=== PATIENT | female | born 1965 | race Caucasian/White ===

== ENCOUNTER 2024-03-12 06:31 | Day surgery (SDC) | payer OTHER, SELFPAY ==
[2024-03-10 13:40] VITALS: BMI 28.9
--- NOTE | 2024-03-11 08:57 | HO.ANESPROP2 ---
Documented by User: Elisabet Pringle NP 03/11/24 08:57 HPI - Anesthesia Eval Consult details Narrative: 58yo F for Colonoscopy PMF Past Medical History Medical History Hypothyroid Anxiety Depression Elevated cholesterol Urinary, incontinence, stress female HTN (hypertension) Surgical History Surgical History History of gynecologic surgery History of endometrial ablation H/O colonoscopy Social History Social History Patient Tobacco Use Status: Never used Tobacco Use of substances other than those prescribed or required for medical reasons: No Are you DNR?: No Advance Directives: No Advance Directives Information Provided: Yes Meds Allergies Allergy/AdvReac Type Severity Reaction Status Date / Time sleeping pills Allergy Unknown Unknown Uncoded 03/12/24 06:50 Home Medications ?Medication ?Instructions ?Recorded ?Confirmed ?Last Taken ?Type clonazepam 0.5 mg tablet 0.5 mg PO DAILY 03/10/24 03/10/24 Unknown History levothyroxine 125 mcg tablet 125 mcg PO DAILY 03/10/24 03/10/24 Unknown History Exam Height,Weight and Vital Signs: Height 5 ft 8 in Weight 86.183 kg Assessment and Plan Assessment Anesthesia Assessment: Chart Reviewed Documented by User: Risa Velazquez MD 03/12/24 08:23 PMFSH Past Medical History Medical History Hypothyroid Anxiety Depression Elevated cholesterol Urinary, incontinence, stress female HTN (hypertension) Family History Family history of problems with anesthesia: No Surgical History Surgical History History of gynecologic surgery History of endometrial ablation H/O colonoscopy History of Problems with Anesthesia: No Social History Social History Patient Tobacco Use Status: Never used Tobacco Use of substances other than those prescribed or required for medical reasons: No Are you DNR?: No Advance Directives: No Advance Directives Information Provided: Yes Meds Allergies Allergy/AdvReac Type Severity Reaction Status Date / Time sleeping pills Allergy Unknown Unknown Uncoded 03/12/24 06:50 Home Medications ?Medication ?Instructions ?Recorded ?Confirmed ?Last Taken ?Type clonazepam 0.5 mg tablet 0.5 mg PO DAILY 03/10/24 03/10/24 Unknown History levothyroxine 125 mcg tablet 125 mcg PO DAILY 03/10/24 03/10/24 Unknown History Exam Airway Mallampati Class: II TM Dist: >3cm Neck ROM: Full Heart: rrr Lungs: cta Assessment and Plan Assessment Anesthesia Assessment: Anesthesia Plan Discussed Final Anesthetic Review Family History of Problems with Anesthesia: No History of Problems with Anesthesia: No NPO: Yes ASA Class: II Final Preanesthetic Review: No Changes in Pt Med Stat, Meds/Allgs Chart Reviewed, Consent Obtained/Reviewed and Anes Risks/Benef Reviewed Patient Risk: Low Procedure Risk: Low Anesthetic Plan Anesthetic Plan: MAC: Disposition: Standard PACU
[2024-03-12 06:53] VITALS: BP 165/90; PULSE 94; RESP 18; TEMP 36.1; O2SAT 98
[2024-03-12] MEDS: Lactated Ringers 1,000 ML 100 ML IVCONT (07:05)
--- NOTE | 2024-03-12 07:33 | MHC.SHP ---
Pre-Procedural Eval Section A - 24 Hr Update-Section A only Date of Service: 03/12/24 Section B - Complete if H&P > 30 days Chief Complaint: screening Details of Present Illness: see H&P no changes Relevant Family History (Specify if Yes): No Relevant Social History: None Present Medications: see Short Stay Collaborative assessment Medical History: No relevant PMH History of Previous Operations: Relevant previous surgery/procedure and date(s) Allergies: Allergies Allergy/AdvReac Type Severity Reaction Status Date / Time sleeping pills Allergy Unknown Unknown Uncoded 03/12/24 06:50 Review of Systems Sugical H&P ROS: Negative: Constitution, Cardiovascular, Respiratory, Neurological, Psychiatric, Hem-Onc, Allergic/Immunologic, Gastrointestinal, Genitourinary, Musculoskeletal, Integumentary, Endocrine and Eyes/Ears/Nose/Throat Exam Surgical H&P Exam: Normal: HEENT, Normal: Heart, Normal: Lungs, Normal: Extremities, Normal: Abdomen, Normal: Skin and Normal: Neurological Plan Diagnosis/Plan: Unchanged I have reviewed the history and physical and performed a pertinent physical examination on my patient. No changes have occurred unless specified. Time Spent With Patient Time: Total time managing care of this patient today ____ minutes.
[2024-03-12 08:15] VITALS: BP 105/56; PULSE 76; RESP 15; TEMP 36.6; O2SAT 98
[2024-03-12 08:30] VITALS: BP 114/73; PULSE 63; RESP 16; O2SAT 98
[2024-03-12 08:45] VITALS: BP 132/72; PULSE 57; RESP 16; TEMP 36.6; O2SAT 97
--- NOTE | 2024-03-12 09:44 | OP_ITS ---
DATE OF SERVICE: 03/12/2024 SURGEON: Matty Patel MD INDICATIONS: Colon cancer screening. PREOPERATIVE DIAGNOSIS: POSTOPERATIVE DIAGNOSIS: PROCEDURE PERFORMED: Colonoscopy to the terminal ileum. ESTIMATED BLOOD LOSS: COMPLICATIONS: ANESTHESIA: Medications, monitored anesthesia care. ASSISTANTS: SPECIMENS: DESCRIPTION OF PROCEDURE: The history and physical performed. The risks and benefits of the procedure were explained to the patient. Informed consent was obtained. The patient was placed in a left lateral decubitus position. A digital rectal exam was performed and was found to be normal. The Olympus pediatric video colonoscope was introduced in the rectum and advanced to the cecum. The cecum was identified by transillumination, palpation, and identification of ileocecal valve. Examination was performed. The scope was removed. She tolerated the procedure well and was returned to recovery in stable condition. FINDINGS: The terminal ileum was examined and appeared normal. The visualized colonic mucosa was normal. The quality of the prep was excellent. No polyps were identified. Retroflexed examination showed some small internal hemorrhoids. IMPRESSION: Normal colonoscopy. RECOMMENDATION: 1. Follow up as needed. 2. Repeat colonoscopy is recommended in 10 years for average-risk individuals. MD SIMEON Horan/LARON / [id number]
== END 2024-03-12 09:15 | disposition home or self-care (01) ==
PROVIDERS: PCP Internal Medicine; Visit Provider Internal Medicine Gastroenterology
PROC: 0DJD8ZZ Inspection of Lower Intestinal Tract, Via Natural or Artificial Opening Endoscopic (ICD-10-PCS; CPT 45378; principal; 2024-03-12 07:30)
DX: Z12.11 Encounter for screening for malignant neoplasm of colon (principal); K64.8 Other hemorrhoids; I10 Essential (primary) hypertension; R14.3 Flatulence; N39.3 Stress incontinence (female) (male); E03.8 Other specified hypothyroidism; E78.5 Hyperlipidemia, unspecified; F41.8 Other specified anxiety disorders; Z79.899 Other long term (current) drug therapy; Z98.890 Other specified postprocedural states
CPT/HCPCS: 45378; J2704

== ENCOUNTER 2024-03-22 17:31 | Emergency (ER) | payer OTHER, SELFPAY ==
--- NOTE | ~2024-03-22 | CT_ITS ---
EXAMINATION: CT HEAD WITHOUT CONTRAST CLINICAL INFORMATION: Dizziness. COMPARISON: None available. TECHNIQUE: Contiguous axial imaging was performed from the skull base to vertex without intravenous administration of contrast. Sagittal and coronal reformatted images also obtained. This CT examination was performed using dose optimization techniques as appropriate, variously including the following: *Automated exposure control *Adjustment of mA and/or kV according to patient size (this includes techniques or standardized protocols for targeted exams where dose is matched to indication/reason for exam; i.e. extremities or head) *Use of iterative reconstruction technique DLP: 589 mGy-cm FINDINGS: The lateral, third and fourth ventricles are normally outlined. The cortical sulci and basal cisterns are normally outlined as well. There is no acute territorial defect, hemorrhage or midline shift. The extra-axial spaces are unremarkable. Calvarium/scalp: Intact. Maxillofacial sinuses and mastoids: Clear as visualized. CT/CT head/brain wo IV con IMPRESSION: No acute intracranial pathology.
[2024-03-22 17:43] VITALS: BP 174/87; PULSE 81; RESP 24; TEMP 36.6; O2SAT 99; BMI 28.2
--- NOTE | 2024-03-22 17:53 | ECG_ITS ---
Test Reason : SYNCOPE Blood Pressure : / mmHG Vent. Rate : 064 BPM Atrial Rate : 064 BPM P-R Int : 136 ms QRS Dur : 088 ms QT Int : 424 ms P-R-T Axes : 025 051 075 degrees QTc Int : 437 ms Normal sinus rhythm Minimal voltage criteria for LVH, may be normal variant ( Sokolow-Llanos ) Nonspecific T wave abnormality Abnormal ECG No previous ECGs available Referred By: Vasquez Whyte Electronically Signed By:HOLLIS CHAVEZ MD
--- NOTE | 2024-03-22 17:56 | ED.GENADULT ---
HPI - General Adult General Chief complaint: Dizziness Stated complaint: HBP 247/120 Time Seen by Provider: 03/22/24 21:16 Source: patient Mode of arrival: ambulatory Limitations: no limitations History of Present Illness HPI narrative: Patient is a 58-year-old female who presents emergency department for evaluation of a room spinning sensation with associated nausea and vomiting. She states that she has experienced symptoms like this at least 4 or 5 times in the past. Believe that this was due to vertigo. Symptoms typically resolve after 24 hours of primarily bed rest. However her symptoms persisted into the 2nd day today which was concerning for her. She reports that she was having some chest discomfort when she arrived, when asked to localize this she states the lower rib line/upper abdomen exacerbated during episodes of vomiting. She denies any vision changes, headache, neck pain, shortness of breath, abdominal pain, numbness or tingling of her extremities. Related Data Home Medications ?Medication ?Instructions ?Recorded ?Confirmed clonazepam 0.5 mg tablet 0.5 mg PO DAILY 03/10/24 03/10/24 levothyroxine 125 mcg tablet 125 mcg PO DAILY 03/10/24 03/10/24 Previous Rx's ?Medication ?Instructions ?Recorded meclizine 25 mg tablet 25 mg PO BID PRN dizziness #20 tabs 03/23/24 ondansetron 4 mg disintegrating 4 mg PO Q8H PRN nausea and 03/23/24 tablet vomiting #10 tabs Allergies Allergy/AdvReac Type Severity Reaction Status Date / Time sleeping pills Allergy Unknown Unknown Uncoded 03/22/24 17:47 Review of Systems Review of Systems: Yes all other systems are reviewed and are negative PMFSH Past Medical History Attestation statement: The following information was validated with the patient. Source: old records reviewed Medical History Hypothyroid Anxiety Depression Elevated cholesterol Urinary, incontinence, stress female HTN (hypertension) Surgical History History of gynecologic surgery History of endometrial ablation H/O colonoscopy Social History Social History Alcohol intake: never Patient Tobacco Use Status: Never used Tobacco Smoked in Last 30 Days: No Use of substances other than those prescribed or required for medical reasons: No Advance Directives: No Advance Directives Information Provided: No Patient : No Physical Exam ED Vital Signs: Vital Signs - 24 hr 03/22/24 17:43 03/22/24 21:35 03/22/24 21:36 Temperature 98 F Pulse Rate 81 65 65 Respiratory Rate 24 H Blood Pressure 174/87 H 178/81 H 177/86 H Pulse Oximetry 99 Oxygen Delivery Method Room Air 03/22/24 21:40 03/22/24 21:45 03/23/24 00:00 Temperature 98.1 F 98.1 F Pulse Rate 80 80 69 Respiratory Rate 18 18 Blood Pressure 156/79 H 156/79 H 155/78 H Pulse Oximetry 98 99 Oxygen Delivery Method Room Air Room Air 03/23/24 01:58 03/23/24 02:19 Temperature 98.3 F 98.3 F Pulse Rate 64 64 Respiratory Rate 16 16 Blood Pressure 137/66 137/66 Pulse Oximetry 97 97 Oxygen Delivery Method Room Air Room Air BMI result Body Mass Index 28.2 Appearance: Alert.?Oriented to person, place and time. No acute distress.?Normal affect. Eyes: Pupils equal, round and reactive to light.? ENT: Pharynx normal.?? Neck: Normal inspection.? Neck supple.?? CVS: Heart sounds normal. Normal heart rate and rhythm.? Pulses normal.?? Respiratory: No respiratory distress.? Lung sounds clear to auscultation bilaterally?? Abdomen: Soft and non-tender. Normoactive bowel sounds. Skin: Skin warm and dry.? Normal skin color.? Extremities: No lower extremity edema.? No calf ttp? Neuro: Moves all extremities spontaneously. Sensation intact bilaterally. CN II-XII intact. No focal neuro deficits. Ambulates with normal steady gait. NIH Stroke Scale Level of Consciousness: Alert Level of Consciousness Questions: Answers both questions correctly Level of Consciousness Commands: Performs both tasks correctly Best Gaze: Normal Visual: No visual loss Facial Palsy: Normal Motor Arm (Right): No drift Motor Arm (Left): No drift Motor Leg (Right): No drift Motor Leg (Left): No drift Limb Ataxia: Absent Sensory: Normal Best Language: No aphasia Dysarthia: Normal Extinction and Inattention: No abnormality Score: 0 Course Course Course Narrative: RME: DOne by ADAM Alberto. [age] year female presents to the ED for dizziness and sensation of room spinning since yesterday with nausea and vomiting. Patient states due to this not able to take her blood pressure medications. Today patient started having headache and slight chest discomfort. Patient states history of vertigo with the 1st time last more than 1 day. NIH score is 0. Negative for any neuro deficits. Labs EKG head CT scan ordered. Reevaluation(s) Reevaluation #1: Orthostatic vital signs with a 20 point drop from sitting to standing position and reported dizziness though much improved from earlier today. Suspect this is likely secondary to dehydration in the setting of lack of oral intake over the past 48 hours. Patient received 1 L normal saline IV fluid. Pending CT of the head Time: 21:44 Reevaluation #2: CT of the head without acute intracranial pathology. Patient's symptoms have resolved she is feeling much better. Repeat orthostatics negative. At this time feel that she is stable for discharge home outpatient follow-up with primary care provider with strict return precautions. All questions answered. Time: 00:45 Medications Administered Discontinued Medications Generic Name Dose Route Start Last Admin Trade Name Bolaq PRN Reason Stop Dose Admin Sodium Chloride 1,000 mls @ 999 mls/hr 03/22/24 21:45 03/22/24 23:15 Ns IV 03/22/24 22:45 Infused .Q1H1M LENA Infusion Meclizine HCl 50 mg 03/22/24 17:51 03/22/24 17:57 Meclizine Hcl 25 Mg Tablet PO 03/22/24 17:52 50 mg ONCE ONE Administration Metoclopramide HCl 10 mg 03/22/24 17:51 03/22/24 17:57 Metoclopramide Hcl 10 Mg Tablet PO 03/22/24 17:52 10 mg ONCE ONE Administration Ondansetron HCl 4 mg 03/22/24 21:45 03/22/24 22:09 Ondansetron Hcl 4 Mg/2 Ml Vial IVPUSH 03/22/24 21:46 4 mg ONCE ONE Administration Medical Decision Making Medical Decision Making MDM Narrative: Patient is a 58-year-old female with past medical history of hypothyroidism, hypercholesterolemia, hypertension, anxiety, depression who presents to the emergency department for evaluation of dizziness with nausea and vomiting, which she reports is consistent with prior episodes of vertigo. States that they typically self resolve after 24 hours of rest, today symptoms lasting longer. She received meclizine and Reglan from the waiting room which she reports significantly improved her symptoms. She continues to have some mild dizziness with position change/head movement. CT scan of her head was ordered prior to my assumption of care and is pending at this time. Reviewed serum labs CBC is without leukocytosis anemia or thrombocytopenia. No electrolyte derangement. No OBDULIA. LFTs within normal range. High sensitive troponin below detectable limits. Wells negative, unlikely to be pulmonary embolism. Symptoms at this time concerning for BPPV, versus orthostatic hypotension due to dehydration with vomiting, suspect less likely CVA, intracranial mass. Cerebellar function is within normal range on testing, NIH stroke score negative, no focal neurological deficits Differential Diagnosis Differential Diagnoses: The differential diagnosis associated with the presentation includes (See narrative above) Admission/Observation Consideration of admission/observation: Escalation of care including admission/observation considered Lab Data MDM Lab Attestation statement: I reviewed the patient's lab results. (See narrative above) 03/22/24 18:40 03/22/24 18:40 Labs: Lab Results 03/22/24 03/22/24 Range/Units 18:40 21:32 WBC 8.2 (4.8-10.8) X10*3/uL RBC 4.92 (4.20-5.50) X10*6/uL Hgb 13.3 (12.0-16.0) g/dl Hct 39.1 (37.0-47.0) % MCV 79.5 L (80.0-98.0) fL MCH 27.0 (27.0-33.0) pg MCHC 34.0 (31.0-35.0) g/dl RDW 13.2 (11.0-16.0) % Plt Count 174 (160-400) X10*3/uL MPV 11.8 (9.4-12.3) fL Immature Gran % (Auto) 0.4 (0.0-0.4) % Neut % (Auto) 84.9 H (45-73) % Lymph % (Auto) 9.2 L (20-40) % Brantley % (Auto) 5.0 (2-11) % Eos % (Auto) 0.0 (0-4) % Baso % (Auto) 0.5 (0-2) % Lymph # (Auto) 0.8 L (1.2-4.9) X10*3/uL Brantley # (Auto) 0.4 (0.1-1.2) X10*3/uL Eos # (Auto) 0.0 (0.0-0.4) X10*3/uL Baso # (Auto) 0.0 (0.0-0.2) X10*3/uL Abs Immat Gran (auto) 0.03 (0.00-0.03) X10*3/uL Absolute Neuts (auto) 7.0 (2.0-8.3) x10*3/uL Absolute Nucleated RBC 0.000 (0.0-0.012) X10*3/uL Nucleated RBC % (auto) 0.0 (0.0-0.2) /100WBC Smear Tech's Comments VERIFIED PT 12.8 (11.1-13.3) SEC INR 1.1 (0.9-1.1) APTT 32.7 (26.0-36.8) SEC Sodium 140 (135-145) mmol/L Potassium 3.5 (3.3-5.1) mmol/L Chloride 107 (96-108) mmol/L Carbon Dioxide 22 (22-29) mmol/L Anion Gap 15 (12-20) BUN 12 (9-16) mg/dL Creatinine 0.71 (0.5-1.4) mg/dL Estim Creat Clear Calc 92.6 Estimated GFR > 60 Random Glucose 128 H (60-115) mg/dL Calcium 10.1 (8.4-10.2) mg/dL Total Bilirubin 0.5 (0.0-1.0) mg/dL AST 20 (5-31) U/L ALT 22 (0-31) U/L Alkaline Phosphatase 77 (39-117) U/L Troponin I High Sens < 2.7 (<3.5-17.0) ng/L Total Protein 7.5 (6.5-8.0) g/dL Albumin 4.4 (3.5-5.0) g/dL Radiology Impression Discussion of test interpretation with radiology: I have reviewed the radiologist's reading. Radiologist Impression: CT/CT head/brain wo IV con IMPRESSION: No acute intracranial pathology. External Record Review External record reviewed: Outpatient record Discharge Plan Discharge Clinical Impression: Benign paroxysmal positional vertigo, Orthostatic hypotension Patient Disposition: Home, Self-Care Instructions: Vertigo (ED) Prescriptions: New meclizine 25 mg tablet 25 mg PO BID PRN (Reason: dizziness) Qty: 20 0RF ondansetron 4 mg tablet,disintegrating 4 mg PO Q8H PRN (Reason: nausea and vomiting) Qty: 10 0RF No Action clonazepam 0.5 mg Tablet 0.5 mg PO DAILY levothyroxine 125 mcg Tablet 125 mcg PO DAILY Referrals: Thania Roman MD [Primary Care Provider] - Interventions: ED Discharge Assessment Last Done: 03/23/24 02:19 Discharge Date/Time: 03/23/24 02:20 Print Language: Montenegrin
[2024-03-22] MEDS: Metoclopramide HCl 10 MG TABLET PO (17:57)
[2024-03-22] MEDS: Meclizine HCl 25 MG TABLET 50 MG PO (17:57)
[2024-03-22 19:02] LABS: Alanine Aminotransferase 22 U/L (0-31); Albumin Level 4.4 g/dL (3.5-5.0); Alkaline Phosphatase 77 U/L (39-117); Anion Gap 15 (12-20); Aspartate Amino Transferase 20 U/L (5-31); Bilirubin Total 0.5 mg/dL (0.0-1.0); Blood Urea Nitrogen 12 mg/dL (9-16); Calcium 10.1 mg/dL (8.4-10.2); Carbon Dioxide 22 mmol/L (22-29); Chloride 107 mmol/L (96-108); Creatinine Clr Calc Pharmacy 92.6; Estimated Glomerular Filt Rate > 60; Glucose Random 128 mg/dL (60-115); Potassium 3.5 mmol/L (3.3-5.1); Sodium 140 mmol/L (135-145); Total Protein 7.5 g/dL (6.5-8.0)
[2024-03-22 19:08] LABS: PLT CLUMP 1; Red Cell Distribution Width 13.2 % (11.0-16.0); SCAN SMEAR FLAG 1
[2024-03-22 19:10] LABS: Basophils Percent Auto 0.5 % (0-2); Hematocrit 39.1 % (37.0-47.0); Hemoglobin 13.3 g/dl (12.0-16.0); Imm Gran Abs Auto 0.03 X10*3/uL (0.00-0.03); Imm Gran Pct Auto 0.4 % (0.0-0.4); Lymphocytes Absolute Auto 0.8 X10*3/uL (1.2-4.9); Lymphocytes Percent Auto 9.2 % (20-40); MANUAL DIFF FLAG SCAN; Mean Corpuscular Volume 79.5 fL (80.0-98.0); Mean Platelet Volume 11.8 fL (9.4-12.3); Monocytes Absolute Auto 0.4 X10*3/uL (0.1-1.2); Neutrophils Percent Auto 84.9 % (45-73); Red Blood Count 4.92 X10*6/uL (4.20-5.50)
[2024-03-22 19:12] LABS: White Blood Count 8.2 X10*3/uL (4.8-10.8)
[2024-03-22 19:17] LABS: Troponin-I High Sensitivity < 2.7 ng/L (<3.5-17.0)
[2024-03-22 20:30] LABS: Platelet Count 174 X10*3/uL (160-400); SLIDE REVIEW VERIFIED
--- NOTE | 2024-03-22 21:07 | PC.NURSE ---
pt not in waiting room at this time.
[2024-03-22 21:35] VITALS: BP 178/81; PULSE 65
[2024-03-22 21:36] VITALS: BP 177/86; PULSE 65
[2024-03-22 21:40] VITALS: BP 156/79; PULSE 80
[2024-03-22 21:45] VITALS: BP 156/79; PULSE 80; RESP 18; TEMP 36.7; O2SAT 98
[2024-03-22 21:52] LABS: INTERNATIONAL NORM RATIO 1.1 (0.9-1.1); Prothrombin Time 12.8 SEC (11.1-13.3)
[2024-03-22 21:54] LABS: Partial Thromboplastin Time 32.7 SEC (26.0-36.8)
[2024-03-22] MEDS: ondansetron HCL 4 MG/2 ML VIAL IVPUSH (22:09)
[2024-03-22] MEDS: 0.9 % Sodium Chloride 1,000 ML 999 ML IV (22:10)
[2024-03-23] VITALS: BP 155/78; PULSE 69; RESP 18; TEMP 36.7; O2SAT 99
[2024-03-23 01:58] VITALS: BP 137/66; PULSE 64; RESP 16; TEMP 36.8; O2SAT 97
[2024-03-23 02:19] VITALS: BP 137/66; PULSE 64; RESP 16; TEMP 36.8; O2SAT 97
== END 2024-03-23 02:20 | disposition home or self-care (01) ==
PROVIDERS: Physician Assistant; Emergency Provider Emergency Medicine Emergency Medical Services; PCP Internal Medicine
DX: H81.13 Benign paroxysmal vertigo, bilateral (principal); I95.1 Orthostatic hypotension; R11.2 Nausea with vomiting, unspecified; R10.9 Unspecified abdominal pain; R94.31 Abnormal electrocardiogram [ECG] [EKG]; Z79.899 Other long term (current) drug therapy
CPT/HCPCS: 36415; 70450; 80053; 84484; 85025; 85610; 85730; 93005; 96361; 96374; 99284; 99285; J2405

== ENCOUNTER → 2024-03-22 17:53 | Outpatient (BNV) | payer OTHER, SELFPAY | PROVIDERS: Emergency Provider Emergency Medicine Emergency Medical Services; PCP Internal Medicine; Visit Provider Internal Medicine Cardiovascular Disease | DX: R55 Syncope and collapse (principal) | CPT/HCPCS: 93010 ==